=== PATIENT | female | born 1995 | race Caucasian/White ===

== ENCOUNTER → 2024-10-13 | Outpatient (CLI) | payer OTHER ==
[2024-10-13 16:32] LABS: Hematocrit 41.6 % (33.0-51.0); Hemoglobin 14.2 g/dL (11.5-16.0); Mean Corpuscular HGB 30.5 pg (26.0-34.0); Mean Corpuscular HGB Conc 34.1 g/dL (31.5-36.5); Mean Corpuscular Volume 90 fL (80-100); Mean Platelet Volume 9.6 fL (9.1-12.4); Platelet Count 326 K/mm3 (150-400); RDW Coefficient Variation 12.7 % (11.7-14.2); RDW Standard Deviation 41.7 fL (35.1-46.3); Red Blood Cell Count 4.65 M/mm3 (3.80-5.20); White Blood Cell Count 11.33 K/mm3 (4.00-11.30)
[2024-10-13 17:11] LABS: Percent Saturation 32.1 % (15.0-50.0)
== END ==
LOC: LAB SHORT 16:22 → LAB 16:22
DX: R79.0 Abnormal level of blood mineral (principal)
CPT/HCPCS: 36415; 82728; 83540; 83550; 85027

== ENCOUNTER 2024-12-07 12:34 | Day surgery (SDC) | payer OTHER ==
[~2024-12-07] VITALS: Ht 167.6 cm; Wt 83.7 kg
[2024-12-07] MEDS ORDERED: MIRALAX1714 (13:25)
--- NOTE | 2024-12-07 14:52 | NUR ---
12/07/24 1452 Valeria Randolph 2ML NS TO ELEVATE POLYP
== END 2024-12-07 15:20 | disposition home or self-care (01) ==
LOC: ORSCSDS 12:34
PROVIDERS: Specialist
PROC: 0DBP8ZX Excision of Rectum, Via Natural or Artificial Opening Endoscopic, Diagnostic (ICD-10-PCS; principal; 2024-12-07 14:15)
PROC: 0DBL8ZX Excision of Transverse Colon, Via Natural or Artificial Opening Endoscopic, Diagnostic (ICD-10-PCS; principal; 2024-12-07 14:15)
PROC: 0DBE8ZX Excision of Large Intestine, Via Natural or Artificial Opening Endoscopic, Diagnostic (ICD-10-PCS; principal; 2024-12-07 14:15)
DX: R10.84 Generalized abdominal pain (principal); R19.4 Change in bowel habit; Z86.0100 Personal history of colon polyps, unspecified; K52.9 Noninfective gastroenteritis and colitis, unspecified; D12.3 Benign neoplasm of transverse colon; D12.8 Benign neoplasm of rectum; K64.8 Other hemorrhoids; K64.4 Residual hemorrhoidal skin tags
CPT/HCPCS: 88305; J2704; J7120